=== PATIENT | male | born 1990 | race African-American/Black ===

== ENCOUNTER 2017-06-16 11:38 | Emergency (ER) | payer MEDICAID, OTHER ==
[~2017-06-16] VITALS: Ht 185.4 cm; Wt 91.2 kg
[2017-06-16 12:03] VITALS: BP 123/57
[2017-06-16] MEDS ORDERED: NEOMYCIN-BACITRACIN-POLYM UNITDOSE PKG TOP OINT TOP ONE (13:00)
== END 2017-06-16 12:56 | disposition home or self-care (01) ==
LOC: ER 11:38
DX: S01.01XA Laceration without foreign body of scalp, initial encounter (principal); W22.8XXA Striking against or struck by other objects, initial encounter; Y93.89 Activity, other specified; Y99.8 Other external cause status; Y92.89 Other specified places as the place of occurrence of the external cause
CPT/HCPCS: 12002

== ENCOUNTER 2017-06-23 09:13 | Emergency (ER) | payer MEDICAID ==
[~2017-06-23] VITALS: Ht 185.4 cm; Wt 90.7 kg
[2017-06-23 09:44] VITALS: BP 113/69
== END 2017-06-23 09:59 | disposition home or self-care (01) ==
LOC: ER 09:13
DX: S01.01XD Laceration without foreign body of scalp, subsequent encounter (principal); X58.XXXD Exposure to other specified factors, subsequent encounter

== ENCOUNTER 2017-08-07 10:26 | Emergency (ER) | payer MEDICAID ==
[~2017-08-07] VITALS: Ht 185.4 cm; Wt 93.9 kg
[2017-08-07 10:35] VITALS: BP 122/80
== END 2017-08-07 11:37 | disposition home or self-care (01) ==
LOC: ER 10:31
DX: J45.909 Unspecified asthma, uncomplicated (principal); Z76.0 Encounter for issue of repeat prescription